=== PATIENT | male | born 1985 | race Caucasian/White ===

== ENCOUNTER 2019-02-09 08:24 | Emergency (ER) | payer BC ==
[~2019-02-09] VITALS: Ht 172.7 cm; Wt 99.8 kg
[2019-02-09 08:31] VITALS: BP 131/96
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
--- NOTE | 2019-02-09 08:33 | NUR ---
PT BIB [facility] TO ER BED 8
[2019-02-09] MEDS ORDERED: KETOROLAC 60 MG/2 ML VIAL IM ONE (09:05)
--- NOTE | 2019-02-09 09:10 | NUR ---
PT AT CT AT THIS TIME.
--- NOTE | 2019-02-09 09:18 | NUR ---
PT RETURNED FROM CT
--- NOTE | 2019-02-09 09:55 | NUR ---
DR GALE RE-EVALUATING PT
--- NOTE | 2019-02-09 09:55 | NUR ---
C-COLLAR REMOVED BY ERMD
--- NOTE | 2019-02-09 10:22 | NUR ---
NEURO INTACT: PT [id number]. 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 PT CALM AND RELAXED.
[2019-02-09 10:23] VITALS: BP 120/84
--- NOTE | 2019-02-09 10:23 | NUR ---
Patient discharged with v/s stable. Written and verbal after care instructions given and explained. Patient alert, oriented and verbalized understanding of instructions. Wheel Chair Assisted with to car. All questions addressed prior to discharge. ID band removed. Patient advised to follow up with PMD. Rx of NAPROSYN AND NORCO given. INSTRUCTED TO TAKE WITH MEAL AND DO NOT DRIVE AFTER TAKING MEDICATIONS. Patient educated on indication of medication including possible reaction and side effects. Opportunity to ask questions provided and answered. PT GIVEN EXCUSE FROM WORK AND PHYSICAL ACTIVITY.
== END 2019-02-09 10:23 | disposition home or self-care (01) ==
LOC: MED 08:24
DX: S13.9XXA Sprain of joints and ligaments of unspecified parts of neck, initial encounter (principal); R03.0 Elevated blood-pressure reading, without diagnosis of hypertension; M79.661 Pain in right lower leg; M79.662 Pain in left lower leg; V43.52XA Car driver injured in collision with other type car in traffic accident, initial encounter; Y93.89 Activity, other specified; Y92.488 Other paved roadways as the place of occurrence of the external cause; Y99.8 Other external cause status
CPT/HCPCS: 72125; 96372; 99284; J1885